=== PATIENT | female | born 1985 | race American Indian/Alaskan Native ===

== ENCOUNTER 2016-10-11 17:11 | Emergency (ER) | payer MEDICAID, OTHER | END 2016-10-11 20:20 | disposition left against medical advice (07) | LOC: DL.ED 17:11 | DX: Z53.21 Procedure and treatment not carried out due to patient leaving prior to being seen by health care provider (principal) ==

== ENCOUNTER 2017-01-15 23:58 | Emergency (ER) | payer MEDICAID, OTHER ==
[2017-01-16] MEDS ORDERED: Tetracaine HCl/PF 0.5% 4 ML Bottle EYEBOTH ONE (00:07)
[2017-01-16 00:23] VITALS: BP 119/71
== END 2017-01-16 00:50 | disposition left against medical advice (07) ==
LOC: DL.ED 23:58
DX: H57.13 Ocular pain, bilateral (principal)
CPT/HCPCS: A9270-GY

== ENCOUNTER 2017-06-10 11:28 | Inpatient (IN) | payer MEDICAID, OTHER ==
[2017-06-10] MEDS ORDERED: Lactated Ringers 500 ML IV ONE (12:00)
[2017-06-10] MEDS ORDERED: Citric Acid/Sodium Citrate Solution 30 ML Cup PO ONE (12:43)
[2017-06-10] MEDS ORDERED: ceFAZolin 2 GM in Premix Bag 1 BAG IV ONE (12:43)
[2017-06-10] MEDS ORDERED: Sodium Chloride 0.9% 10 ML Syringe FLUSH PRN (12:43)
[2017-06-10] MEDS ORDERED: Oxytocin/Normal Saline 60 UNIT/1,000 ML BAG ONE (12:56)
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
[2017-06-10] MEDS ORDERED: Oxytocin/Normal Saline 30 UNIT/500 ML BAG IV SCH (14:30)
[2017-06-10] MEDS ORDERED: Measles, Mumps & Rubella Vaccine 0.5 ML SDV SUBCUT ONE (14:51)
[2017-06-10] MEDS ORDERED: Oxytocin/Normal Saline 30 UNIT/500 ML BAG IV ONE (15:33)
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
[2017-06-10] MEDS ORDERED: Carboprost Tromethamine 250 MCG/1 ML Amp IM ONE (17:31)
[2017-06-10] MEDS ORDERED: Naloxone 2 MG/2 ML Syringe IVPUSH PRN (17:31)
[2017-06-10] MEDS ORDERED: Acetaminophen 325 MG Tab PO PRN (17:31)
[2017-06-10] MEDS ORDERED: ePHEDrine 50 MG/ML SDV IVPUSH PRN (17:31)
[2017-06-10] MEDS ORDERED: Ondansetron 4 MG/2 ML SDV IV PRN (17:31)
[2017-06-10] MEDS ORDERED: Methylergonovine 0.2 MG/1 ML Amp IM PRN (17:31)
[2017-06-10] MEDS ORDERED: Misoprostol 400 MCG (4 X 100 MCG TAB) RECTAL PRN (17:31)
[2017-06-10] MEDS ORDERED: diphenhydrAMINE 50 MG/ML SDV IVPUSH PRN (17:31)
[2017-06-10] MEDS ORDERED: Acetaminophen/oxyCODONE 325-5 MG Tab PO PRN (17:31)
[2017-06-10] MEDS: Acetaminophen/oxyCODONE 325-5 MG Tab PO PRN ×2 (17:50→22:02)
[2017-06-10] MEDS: Simethicone 80 MG Tab.Chew PO PRN (17:51)
[2017-06-10] MEDS: Lactated Ringers 1,000 ML IV SCH ×2 (17:53→23:06)
[2017-06-10] MEDS: Ketorolac 30 MG/ML SDV IVPUSH SCH (21:15)
[2017-06-10] MEDS: ceFAZolin 1 GM in Premix Bag 1 BAG IV SCH ×2 (21:16→22:34)
[2017-06-10] MEDS: Docusate Sodium 100 MG Cap PO PRN (21:18)
[2017-06-11] MEDS: Ketorolac 30 MG/ML SDV IVPUSH SCH ×2 (03:03→09:50)
[2017-06-11] MEDS: ceFAZolin 1 GM in Premix Bag 1 BAG IV SCH (06:11)
[2017-06-11] MEDS: Acetaminophen/oxyCODONE 325-5 MG Tab PO PRN ×5 (06:12→22:15)
[2017-06-11] MEDS: Lactated Ringers 1,000 ML IV SCH (07:50)
[2017-06-11] MEDS: Docusate Sodium 100 MG Cap PO PRN ×2 (09:49→22:15)
[2017-06-11] MEDS: Simethicone 80 MG Tab.Chew PO PRN ×3 (09:49→18:25)
--- NOTE | 2017-06-11 11:20 | PN ---
DATE: 06/11/2017 SUBJECTIVE: Postoperative day #1, doing well. She has been up to ambulate a few times and is voiding without difficulty. I think she might be passing some flatus, but is uncertain. Complaining of a little bit of a sharp sensation over toward the left side of her incision, but notes that this did not start until after she was given her MMR vaccine. Otherwise postoperative pain is well controlled. Denies any excessive bleeding. She has had no chest pain or shortness of breath. No symptoms of preeclampsia. Overall reports that is not going as well as she had hoped and the baby only latches very short-term and patient is willing to work with the nurses on this and has done some formula supplementation. No other new concerns today. OBJECTIVE: Vital Signs: Temperature is 98.0, pulse is 85, blood pressure 104/52, respiratory rate of 16, and O2 saturations 95% on room air. Heart: Regular without murmur. Lungs: Clear to auscultation with good chest expansion. Abdomen: Soft and nontender. Fundus is firm and below the umbilicus. Positive bowel sounds in all 4 quadrants. Dressing is intact. There is no strike through from the incision site itself, but there is a little bit of strike through from where the abscess was drained. Extremities: MANJU hoses are on. No warmth to touch. No edema or tenderness noted. LABORATORY DATA: Hemoglobin is down to 9.9 from a previous 12.5, platelets are down to 143 from 159. ASSESSMENT: Postoperative day #1. 1. Status post repeat section #3 at 36 weeks' gestation. 2. Rubella nonimmune status post MMR vaccination booster given. 3. Superficial abscesses of the mons pubis. 4. mother. 5. Other diagnoses per her admission H and P, most of which were considered resolved at this time. PLAN: Continue normal postoperative and cares and anticipate discharge home on postoperative day #3. Continue to work with lending consultant regarding the breast-feeding issues and the patient's questions were answered. [facility] /[id number]
[2017-06-11] MEDS ORDERED: ceFAZolin 1 GM in Premix Bag 1 BAG IV SCH (14:00)
[2017-06-11] MEDS: Ibuprofen 800 MG Tab PO PRN (18:24)
[2017-06-12] MEDS: Simethicone 80 MG Tab.Chew PO PRN ×3 (01:12→13:25)
[2017-06-12] MEDS: Ibuprofen 800 MG Tab PO PRN ×3 (01:12→17:28)
[2017-06-12] MEDS: Acetaminophen/oxyCODONE 325-5 MG Tab PO PRN ×5 (04:09→21:28)
--- NOTE | 2017-06-12 07:22 | OR ---
DATE: 06/10/2017 ADDENDUM: ADDITIONAL PREOPERATIVE DIAGNOSIS: Superficial skin abscesses on the mons pubis X2. POSTOPERATIVE DIAGNOSIS: Status post incision and drainage of the larger skin abscess. PROCEDURE: A simple incision and drainage of a larger skin abscess on the right side of the mons pubis with a cruciate incision. A sample of the drainage was cultured, and additional pus was expressed. This was all done under clean technique in the area that had already been prepped with ChloraPrep, and a sterile simple dressing was applied after that to promote drainage. FINDINGS: Two superficial skin abscesses were present on the mons pubis. First one is less than 1 cm in size and off to the left. The larger one on the right was approximately 2.5 cm of erythema, 0.5 cm of fluctuant induration, and purulent fluid expressed after it was opened. [facility] /[id number]
[2017-06-12] MEDS: Docusate Sodium 100 MG Cap PO PRN (08:59)
--- NOTE | 2017-06-12 11:04 | PN ---
DATE: 06/12/2017 SUBJECTIVE: Postoperative day #2. Doing well, ambulating, tolerating regular diet, passing flatus, has not yet had a bowel movement, voiding without difficulties, bleeding has been minimal, and then using SCDs at times for the leg massage. She has been exclusively pumping at this time and not getting much in the output for breast milk, and plans on going home tomorrow. OBJECTIVE: Vital Signs: Temperature 97.4, pulse 92, blood pressure 117/72, respiratory rate of 16, O2 saturations 98% on room air. Heart: Regular without any obvious murmur. Lungs: Clear to auscultation bilaterally. Abdomen: Soft without masses. Bowel sounds are positive. Incision is clean, dry, and intact. Extremities: MANJU hose are on. No warmth to touch, tenderness, or swelling appreciated. ASSESSMENT: 1. Postoperative day #2 status post repeat . 2. Delivered at 36 weeks' gestation. Now 3, para 1-2-0-2. PLAN: Continue routine postoperative cares. Anticipating discharge home tomorrow as long as all continues to go well. Discussed with the patient possibly starting some Reglan for helping with breast milk production, continuing with pumping, and Formula supplementation. Her questions have been answered and she is in agreement with the plan. [facility] /[id number] MARIA ELENA
[2017-06-12] MEDS: Prenatal Multivitamin with Calcium/Folic Acid/Iron Tab PO SCH (11:49)
[2017-06-12] MEDS: Metoclopramide 10 MG Tab PO SCH ×2 (11:49→17:03)
[2017-06-12] MEDS ORDERED: Ketorolac 30 MG/ML SDV IVPUSH ONE (15:34)
[2017-06-12] MEDS ORDERED: Lactated Ringers 1,000 ML IV ONE (15:34)
[2017-06-12] MEDS ORDERED: Morphine PF 1 MG/ML Amp ONE (15:34)
[2017-06-13] MEDS: Ibuprofen 800 MG Tab PO PRN (08:05)
[2017-06-13] MEDS: Simethicone 80 MG Tab.Chew PO PRN (08:05)
[2017-06-13] MEDS: Acetaminophen/oxyCODONE 325-5 MG Tab PO PRN ×2 (08:05→12:13)
[2017-06-13] MEDS: Prenatal Multivitamin with Calcium/Folic Acid/Iron Tab PO SCH (08:05)
[2017-06-13] MEDS: Docusate Sodium 100 MG Cap PO PRN (08:06)
[2017-06-13] MEDS: Metoclopramide 10 MG Tab PO SCH ×2 (08:09→12:13)
[2017-06-13 08:56] VITALS: BP 119/70
--- NOTE | 2017-06-13 10:37 | PCM.PRNOTE ---
- Free Text/Narrative Note: Dr. Parkinson spoke with me this morning regarding Karin. Dr Parkinson stated Karin is having headaches and would like me to rule out a PDPH. Upon entering the room, pt is sitting up with baby sleeping in bed to her left. Pt appears to be in no obvious distress. Pt is complaining of headaches and dizziness when standing/ walking. Headaches began immediately after delivery and have continued to this point. Oral analgesics do help with the pain but dizziness is more concerning to pt then the headahces. Headaches are located frontal and patient is also complaining that her hearing is "muffled". Temp is 99.7 but room was warm and pt was covered head-to-toe with blankets. Complaining of generalized malaise. Appetite is adequate and elimination is normal. Spoke with Karin regarding PDPH and we both agree that she does not have the typical symptoms associated with PDPH. Pt confirms she feels congested but denies and post nasal drainage or a cough. Karin was instructed to sit before standing and no sudden position changes while walking. Encouraged to maintain hydration and to notify anesthesia if her headaches worsen or if she believes she may a PDPH. Discussed these findings briefly with Dr Parkinson. Dr Parkinson says she will address the headaches and dizziness.
[2017-06-13] MEDS ORDERED: Propofol 200 MG/20 ML SDV IV ONE (12:44)
--- NOTE | 2017-06-15 20:23 | DISCH ---
ADMISSION DIAGNOSES: 1. A 36 and 0/7 weeks' intrauterine by last menstrual period. 2. Active labor. 3. History of section x2. 4. 3, para 1-1-0-1. 5. Group B Streptococcus positive. 6. Rubella nonimmune. 7. Blood type O positive. 8. Gastroesophageal reflux disease. 9. History of labor and delivery. 10.History of low-lying placenta, resolved. 11.Abscess on the mons pubis. DISCHARGE DIAGNOSES: 1. A 36 and 0/7 weeks' intrauterine by last menstrual period. 2. Active labor. 3. History of section x2. 4. 3, para 1-1-0-2. 5. Group B Streptococcus positive. 6. Rubella nonimmune. 7. Blood type O positive. 8. Gastroesophageal reflux disease. 9. History of labor and delivery. 10.History of low-lying placenta, resolved. 11.Abscess on the mons pubis. 12.Thrombocytopenia. 13.Status post repeat low transverse section. 14.Status post incision and drainage of abscess that grew out Staphylococcus lugdunensis. 15.Anemia of blood loss. BRIEF HISTORY: A 32-year-old female, admitted to the hospital with spontaneous onset of labor and 7 cm of dilatation. Repeat section called for immediately and performed without complications or difficulty. See admission history and physical and operative report for details. HOSPITAL COURSE: Good. After her , the patient has done well in general postoperatively. On day of discharge, she reported a headache, had been there since the day of discharge, Anesthesia assessed and felt the spinal headache was not the cause and that sinusitis was the more likely etiology. She had no other significant symptoms of head cold or sinusitis and did not have fevers. No antibiotics were prescribed. After surgery, she has been ambulating, tolerating regular diet, passing flatus, not had a bowel movement, was voiding without difficulties. Abdominal pain and soreness were controlled. Otherwise, she was having some difficulties with , and needing to pump and feed her baby expressed breast milk and bottle feed, but is determined to keep working on this once they go home. She was denying any symptoms of severe anemia. Did not have any spontaneous bruising or bleeding. The I and D site had improved in appearance over the course of her hospital stay, and she had no complications from her wound. DISCHARGE CONDITION: Good. Vital Signs: Temperature is 98.8, pulse is 87, blood pressure 119/70, respiratory rate of 18, and O2 saturations 98% on room air. HEENT: Head, normocephalic and atraumatic. Ear canals are clear. Nose, turbinates are mildly boggy and inflamed, but no significant drainage present. Some sinus tenderness is present. Heart: Regular without murmur. Lungs: Clear to auscultation bilaterally with good chest expansion. Abdomen: Soft. Bowel sounds are normal. Fundus is firm and below the umbilicus. Incision site is clean, dry, and intact with dilan in place. Incision and drainage site also appears to be healing well. Extremities: Trace edema. No erythema or tenderness noted. Admission hemoglobin 12.5, discharge of 9.9. Admission platelets 159, discharge 143. DISPOSITION: Home with family. MEDICATIONS: 1. Percocet 5/325 one to two tablets every 4 to 6 hours as needed for pain. 2. Ibuprofen 600 mg every 6 hours as needed for pain. 3. Iron 325 mg twice daily. 4. Colace 100 mg twice daily as needed for pain. 5. vitamin, continue 1 daily. FOLLOWUP: She will be seen in the office in the next few days with her baby for postoperative check and staple removal. INSTRUCTIONS: Routine postoperative care instructions were provided. Specific attention was paid to signs and symptoms of infection that would warrant repeat evaluation or treatment. As for her sinus congestion symptoms, it was recommended that she use typical lota-bae-tcvplnl remedies, sinus rinse kit, Sudafed as needed, Tylenol or ibuprofen for pain, humidification, and another simple modalities for treatment. All chance that this actually is a spinal headache also discussed, adequate rest and caffeine use to help with symptoms as well. The patient's questions were answered, and she was discharged home in good condition. [facility] /[id number] MARIA ELENA
== END 2017-06-13 12:45 | disposition home or self-care (01) | DRG 765 ==
LOC: DL.OBCHECK 11:28 → DL.MS 12:43 → UNDOADMOB 12:45 → DL.MS 13:20 → OBSVTOIN 13:39
PROVIDERS: ADMIT Family Medicine; ATTEND Family Medicine
PROC: 10D00Z1 Extraction of Products of Conception, Low, Open Approach (ICD-10-PCS; principal; 2017-06-10)
PROC: 0W9N0ZZ Drainage of Female Perineum, Open Approach (ICD-10-PCS; 2017-06-10)
DX: O99.52 Diseases of the respiratory system complicating childbirth (principal); L02.215 Cutaneous abscess of perineum; O60.13X0 Preterm labor second trimester with preterm delivery third trimester, not applicable or unspecified; Z3A.36 36 weeks gestation of pregnancy; Z37.0 Single live birth; O34.211 Maternal care for low transverse scar from previous cesarean delivery; N85.8 Other specified noninflammatory disorders of uterus; O99.824 Streptococcus B carrier state complicating childbirth; O75.89 Other specified complications of labor and delivery; K21.9 Gastro-esophageal reflux disease without esophagitis; Z87.891 Personal history of nicotine dependence; Z79.899 Other long term (current) drug therapy; Z88.1 Allergy status to other antibiotic agents; Z91.040 Latex allergy status
CPT/HCPCS: 01961; 36415; 85025; 85027; 86850; 86900; 86901; 87070; 87077; 87186; 90471; 90707; 94010; A9270-GY; J0690; J1200; J1885; J2274; J2590; J2704; J7120

== ENCOUNTER 2017-07-18 00:26 | Emergency (ER) | payer MEDICAID, OTHER ==
[2017-07-18 01:06] VITALS: BP 118/74
--- NOTE | 2017-07-18 01:16 | EDM.PDOC ---
ED HPI GENERAL MEDICAL PROBLEM - General Chief Complaint: Head Injury Stated Complaint: BAD HEAD ACHE [id number] Time Seen by Provider: 07/18/17 01:10 Source of Information: Reports: Patient History Limitations: Reports: No Limitations - History of Present Illness INITIAL COMMENTS - FREE TEXT/NARRATIVE: This 32 yo female patient reports to the ED with a headache. The patient reports she slipped on the ice at about 0700 yesterday morning (07/17/17) and has been experiencing an increased headache, intermittent dizziness and nausea since the incident. The patient reports she took Tylenol at about 2100 last night with no changes in symptoms. 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 Posterior Head Pain Score (Numeric/FACES): 7 - Related Data Allergies Allergy/AdvReac Type Severity Reaction Status Date / Time amoxicillin [Amoxicillin] Allergy Rash Verified 06/05/17 21:32 latex Allergy Blisters Verified 06/05/17 21:32 Home Meds: Home Meds Vit W-Ca,Fe,FA(<1 mg) [ Vitamins] 1 each PO DAILY 01/16/17 [ History] Acetaminophen/oxyCODONE [Percocet 325-5 MG] 2 tab PO Q4H PRN #30 tablet [Rx] Docusate Sodium [Colace] 100 mg PO Q12H PRN #60 cap 06/13/17 [Rx] Ferrous Sulfate 325 mg PO BIDMEALS #60 tablet 06/13/17 [Rx] Ibuprofen [IJD: Ibuprofen] 600 mg PO Q6H PRN #30 tablet 06/13/17 [Rx] Past Medical History HEENT History: Reports: Impaired Vision Other HEENT History: states has not worn her contact lenses for past couple days Cardiovascular History: Reports: None Respiratory History: Reports: Asthma Gastrointestinal History: Reports: GERD Genitourinary History: Reports: None 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: , Other (See Below) Other OB/BYN History: currently is LMP 10/02/16; EDC 07/10/17 Musculoskeletal History: Reports: None Neurological History: Reports: None Psychiatric History: Reports: None Endocrine/Metabolic History: Reports: None Hematologic History: Reports: Blood Transfusion(s) Immunologic History: Reports: None Oncologic (Cancer) History: Reports: None Dermatologic History: Reports: None - Past Surgical History Head Surgeries/Procedures: Reports: None Cardiovascular Surgical History: Reports: None Respiratory Surgical History: Reports: None GI Surgical History: Reports: Appendectomy Female Surgical History: Reports: Section Endocrine Surgical History: Reports: None Neurological Surgical History: Reports: None Musculoskeletal Surgical History: Reports: None Oncologic Surgical History: Reports: None Dermatological Surgical History: Reports: None Social & Family History - Family History Family Medical History: Noncontributory - Tobacco Use Smoking Status *Q: Former Smoker Years of Tobacco use: 7 Packs/Tins Daily: 0.5 Used Tobacco, but Quit: No Month Tobacco Last Used: 10/2016 Second Hand Smoke Exposure: No - Caffeine Use Caffeine Use: Reports: None - Recreational Drug Use Recreational Drug Use: No Drug Use in Last 12 Months: No ED ROS GENERAL - Review of Systems Review Of Systems: ROS reveals no pertinent complaints other than HPI. ED EXAM, HEAD INJURY - Physical Exam Exam: See Below Exam Limited By: No Limitations General Appearance: Alert, WD/WN, Moderate Distress Head: Scalp Tenderness (posterior) Nexus Criteria: No: Posterior, Midline Cervical Tenderness, Evidence of Intoxication, Altered Level of Consciousness, Focal Neurological Deficit, Painful Distraction Injuries Eyes: Bilateral Eye: EOMI, Normal Inspection, PERRL Ears: Normal External Exam, Normal Canal, Hearing Grossly Normal, Normal TMs Nose: Normal Inspection, Normal Mucousa, No Blood Throat/Mouth: Normal Inspection, Normal Lips, Normal Teeth, Normal Gums, Normal Oropharynx, Normal Voice, No Airway Compromise Neck: Non-Tender, Full Range of Motion, Normal Alignment, Normal Inspection Respiratory: No Respiratory Distress, Lungs Clear, Normal Breath Sounds, No Accessory Muscle Use, Chest Non-Tender Cardiovascular: Normal Peripheral Pulses, Regular Rate, Rhythm, No Edema, No Gallop, No JVD, No Murmur, No Rub GI/Abdominal Exam: Normal Bowel Sounds, Soft, Non-Tender, No Organomegaly, No Distention, No Abnormal Bruit, No Mass (Female) Exam: Deferred Rectal (Female) Exam: Deferred Back Exam: Full Range of Motion, Normal Inspection, NT Extremities: Normal Inspection, Normal Range of Motion, Non-Tender, No Pedal Edema, Normal Capillary Refill 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 As Tested, No Motor/Sensory Deficits, Alert, Normal Mood/Affect, Oriented x 3 Skin: Normal Color, Warm/Dry - [place] Coma Score Best Eye Response (Anel): (4) Open Spontaneously Best Verbal Response ([place]): (5) Oriented Best Motor Response ([place]): (6) Obeys Commands Anel Total: 15 Course - Vital Signs Last Recorded V/S: Last Vital Signs Temp 36.8 C 07/18/17 00:55 Pulse 76 07/18/17 00:55 Resp 16 07/18/17 00:55 BP 118/74 07/18/17 00:55 Pulse Ox 99 07/18/17 00:55 - Orders/Labs/Meds Orders: Active Orders 24 hr Category Date Time Status Head wo Cont [CT] Urgent Exams 07/18/17 01:11 Taken Meds: Medications Discontinued Medications Generic Name Dose Route Start Last Admin Trade Name Freq PRN Reason Stop Dose Admin Ketorolac Tromethamine 60 mg 07/18/17 01:48 Toradol IM 07/18/17 01:49 ONETIME ONE Departure - Departure Time of Disposition: 01:55 Disposition: Home, Self-Care 01 Condition: Fair Clinical Impression: Concussion injury of brain - Discharge Information Instructions: Concussion, Adult, [id number] Forms: ED Department Discharge Care Plan Goals: The patient was advised of the examination and CT results during the visit. The patient was given an injection of Toradol while in the ED for her headache. The patient was advised of a cyst found during the CT of her head. The patient was encouraged to follow-up with her primary care facility for continued evaluation and possible additional treatment for the cyst. The patient was also encouraged to rest and relax over the next 24-48 hours. If the patient has any additional symptoms or concerns, the patient should visit her primary care facility or return to the emergency department. - My Orders Last 24 Hours: My Active Orders 07/18/17 01:11 Head wo Cont [CT] Urgent - Assessment/Plan Last 24 Hours: My Active Orders 07/18/17 01:11 Head wo Cont [CT] Urgent
[2017-07-18] MEDS ORDERED: Ketorolac 30 MG/ML SDV IM ONE (01:48)
== END 2017-07-18 02:05 | disposition home or self-care (01) ==
LOC: DL.ED 00:26
DX: O9A.23 Injury, poisoning and certain other consequences of external causes complicating the puerperium (principal); S06.0X0A Concussion without loss of consciousness, initial encounter; Z87.891 Personal history of nicotine dependence; Z88.1 Allergy status to other antibiotic agents; Z91.040 Latex allergy status
CPT/HCPCS: 70450; 96372; 99283; J1885

== ENCOUNTER 2017-10-29 07:37 | Emergency (ER) | payer MEDICAID, OTHER ==
[2017-10-29 07:50] VITALS: BP 114/78
--- NOTE | 2017-10-29 08:32 | EDM.PDOC ---
ED HPI GENERAL MEDICAL PROBLEM - General Chief Complaint: Abdominal Pain Stated Complaint: side pain [id number] Time Seen by Provider: 10/29/17 08:15 Source of Information: Reports: Patient History Limitations: Reports: No Limitations - History of Present Illness INITIAL COMMENTS - FREE TEXT/NARRATIVE: This 32 yo female patient reports to the ED with right side and flank pain. The patient reports her symptoms started at about 0430 this morning and has continued since that time. The patient reports she took 2 Tylenol at about 0615 , but has had no symptom relief. The patient reports she did have a and has been having some complications with her surgical wound, but reports the wound seems to be healing now. 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 OB/BYN History: currently is LMP 10/02/16; EDC 07/10/17 Musculoskeletal History: Reports: None Neurological History: Reports: None Psychiatric History: Reports: None Endocrine/Metabolic History: Reports: None Hematologic History: Reports: Blood Transfusion(s) Immunologic History: Reports: None Oncologic (Cancer) History: Reports: None Dermatologic History: Reports: None - Past Surgical History Head Surgeries/Procedures: Reports: None Cardiovascular Surgical History: Reports: None Respiratory Surgical History: Reports: None GI Surgical History: Reports: Appendectomy Female Surgical History: Reports: Section Endocrine Surgical History: Reports: None Neurological Surgical History: Reports: None Musculoskeletal Surgical History: Reports: None Oncologic Surgical History: Reports: None Dermatological Surgical History: Reports: None Social & Family History - Family History Family Medical History: Noncontributory - Tobacco Use Smoking Status *Q: Never Smoker Years of Tobacco use: 7 Packs/Tins Daily: 0.5 Used Tobacco, but Quit: No Month/Year Tobacco Last Used: 10/2016 Second Hand Smoke Exposure: No - Caffeine Use Caffeine Use: Reports: Soda - Recreational Drug Use Recreational Drug Use: No Drug Use in Last 12 Months: No ED ROS GENERAL - Review of Systems Review Of Systems: ROS reveals no pertinent complaints other than HPI. ED EXAM, RENAL/ - Physical Exam Exam: See Below Exam Limited By: No Limitations General Appearance: Alert, WD/WN, Moderate Distress Eye Exam: Bilateral Eye: EOMI, Normal Inspection, PERRL Ears: Normal External Exam, Normal Canal, Hearing Grossly Normal, Normal TMs Nose: Normal Inspection, Normal Mucosa, No Blood Throat/Mouth: Normal Inspection, Normal Lips, Normal Teeth, Normal Gums, Normal Oropharynx, Normal Voice, No Airway Compromise Head: Atraumatic, Normocephalic Neck: Normal Inspection, Supple, Non-Tender, Full Range of Motion Respiratory/Chest: No Respiratory Distress, Lungs Clear, Normal Breath Sounds, No Accessory Muscle Use, Chest Non-Tender Cardiovascular: Normal Peripheral Pulses, Regular Rate, Rhythm, No Edema, No Gallop, No JVD, No Murmur, No Rub GI/Abdominal: Normal Bowel Sounds, Soft, No Organomegaly, No Distention, No Abnormal Bruit, Tender (right sied) (Female) Exam: Deferred Rectal (Female) Exam: Deferred Back Exam: CVA Tenderness (R) Extremities: Normal Inspection, Normal Range of Motion, Non-Tender, Normal Capillary Refill, No Pedal Edema Neurological: Alert, Oriented, CN II-XII Intact, Normal Cognition, Normal Gait, Normal Reflexes, No Motor/Sensory Deficits Psychiatric: Normal Affect, Normal Mood Skin Exam: Warm, Dry, Intact, Normal Color, No Rash Lymphatic: No Adenopathy Course - Vital Signs Last Recorded V/S: Last Vital Signs Temp 36.9 C 10/29/17 07:48 Pulse 87 10/29/17 07:48 Resp 16 10/29/17 07:48 BP 114/78 10/29/17 07:48 Pulse Ox 99 10/29/17 07:48 - Orders/Labs/Meds Orders: Active Orders 24 hr Category Date Time Status CULTURE BLOOD [BC] Stat Lab 10/29/17 08:19 Received Labs: Laboratory Tests 10/29/17 10/29/17 10/29/17 Range/Units 07:44 07:44 07:44 WBC (5.0-10.0) 10^3/uL RBC (4.2-5.4) 10^6/uL Hgb (12.0-16.0) g/dL Hct (37.0-47.0) % MCV (80-100) fL MCH (27.0-34.0) pg MCHC (33.0-35.0) g/dL Plt Count (150-450) 10^3/uL Neut % (Auto) (42.2-75.2) % Lymph % (Auto) (20.5-50.1) % [place] % (Auto) (2-8) % Eos % (Auto) (1.0-3.0) % Baso % (Auto) (0.0-1.0) % Sodium (135-145) mmol/L Potassium (3.6-5.0) mmol/L Chloride (101-111) mmol/L Carbon Dioxide (21.0-31.0) mmol/L Anion Gap BUN (7-18) mg/dL Creatinine (0.6-1.3) mg/dL Est Cr Clr Drug Dosing mL/min Estimated GFR (MDRD) BUN/Creatinine Ratio Glucose (74-105) mg/dL Lactic Acid (0.5-2.2) mmol/L Calcium (8.4-10.2) mg/dl Total Bilirubin (0.2-1.0) mg/dL AST (10-42) IU/L ALT (10-60) IU/L Alkaline Phosphatase (42-121) IU/L Total Protein (6.7-8.2) g/dl Albumin (3.2-5.5) g/dl Globulin Albumin/Globulin Ratio Amylase (28-100) U/L Lipase (22-51) U/L Urine Color Yellow (YELLOW) Urine Appearance Slightly cloudy (CLEAR) Urine pH 5.5 (5.0-9.0) Ur Specific [place] >= 1.030 (1.005-1.030) Urine Protein Trace H (NEGATIVE) Urine Glucose (UA) Negative (NEGATIVE) Urine Ketones Negative (NEGATIVE) Urine Occult Blood Negative (NEGATIVE) Urine Nitrite Negative (NEGATIVE) Urine Bilirubin Negative (NEGATIVE) Urine Urobilinogen 0.2 (0.2-1.0) mg/dL Ur Leukocyte Esterase Negative (NEGATIVE) Urine RBC 0-5 /HPF Urine WBC 0-5 (0-5/HPF) /HPF Ur Epithelial Cells Many H /HPF Urine Bacteria Moderate H (0-FEW/HPF) /HPF Urine Mucus Many H /LPF Urine HCG, Qual Negative Urine Opiates Screen Negative (NEGATIVE) Ur Oxycodone Screen Negative (NEGATIVE) Urine Methadone Screen Negative (NEGATIVE) Ur Barbiturates Screen Negative (NEGATIVE) U Tricyclic Antidepress Negative (NEGATIVE) Ur Phencyclidine Scrn Negative (NEGATIVE) Ur Amphetamine Screen Negative (NEGATIVE) U Methamphetamines Scrn Negative (NEGATIVE) Urine MDMA Screen Negative (NEGATIVE) U Benzodiazepines Scrn Negative (NEGATIVE) Urine Cocaine Screen Negative (NEGATIVE) U Marijuana (THC) Screen Negative (NEGATIVE) 10/29/17 10/29/17 10/29/17 Range/Units 08:19 08:19 08:19 WBC 6.3 (5.0-10.0) 10^3/uL RBC 4.86 (4.2-5.4) 10^6/uL Hgb 13.9 D (12.0-16.0) g/dL Hct 41.4 (37.0-47.0) % MCV 85.2 (80-100) fL MCH 28.6 (27.0-34.0) pg MCHC 33.6 (33.0-35.0) g/dL Plt Count 230 D (150-450) 10^3/uL Neut % (Auto) 62.4 (42.2-75.2) % Lymph % (Auto) 20.7 (20.5-50.1) % [place] % (Auto) 9.1 H (2-8) % Eos % (Auto) 7.6 H (1.0-3.0) % Baso % (Auto) 0.2 (0.0-1.0) % Sodium (135-145) mmol/L Potassium (3.6-5.0) mmol/L Chloride (101-111) mmol/L Carbon Dioxide (21.0-31.0) mmol/L Anion Gap BUN (7-18) mg/dL Creatinine (0.6-1.3) mg/dL Est Cr Clr Drug Dosing mL/min Estimated GFR (MDRD) BUN/Creatinine Ratio Glucose (74-105) mg/dL Lactic Acid 1.1 (0.5-2.2) mmol/L Calcium (8.4-10.2) mg/dl Total Bilirubin (0.2-1.0) mg/dL AST (10-42) IU/L ALT (10-60) IU/L Alkaline Phosphatase (42-121) IU/L Total Protein (6.7-8.2) g/dl Albumin (3.2-5.5) g/dl Globulin Albumin/Globulin Ratio Amylase 47 (28-100) U/L Lipase 22 (22-51) U/L Urine Color (YELLOW) Urine Appearance (CLEAR) Urine pH (5.0-9.0) Ur Specific [place] (1.005-1.030) Urine Protein (NEGATIVE) Urine Glucose (UA) (NEGATIVE) Urine Ketones (NEGATIVE) Urine Occult Blood (NEGATIVE) Urine Nitrite (NEGATIVE) Urine Bilirubin (NEGATIVE) Urine Urobilinogen (0.2-1.0) mg/dL Ur Leukocyte Esterase (NEGATIVE) Urine RBC /HPF Urine WBC (0-5/HPF) /HPF Ur Epithelial Cells /HPF Urine Bacteria (0-FEW/HPF) /HPF Urine Mucus /LPF Urine HCG, Qual Urine Opiates Screen (NEGATIVE) Ur Oxycodone Screen (NEGATIVE) Urine Methadone Screen (NEGATIVE) Ur Barbiturates Screen (NEGATIVE) U Tricyclic Antidepress (NEGATIVE) Ur Phencyclidine Scrn (NEGATIVE) Ur Amphetamine Screen (NEGATIVE) U Methamphetamines Scrn (NEGATIVE) Urine MDMA Screen (NEGATIVE) U Benzodiazepines Scrn (NEGATIVE) Urine Cocaine Screen (NEGATIVE) U Marijuana (THC) Screen (NEGATIVE) 10/29/17 Range/Units 08:19 WBC (5.0-10.0) 10^3/uL RBC (4.2-5.4) 10^6/uL Hgb (12.0-16.0) g/dL Hct (37.0-47.0) % MCV (80-100) fL MCH (27.0-34.0) pg MCHC (33.0-35.0) g/dL Plt Count (150-450) 10^3/uL Neut % (Auto) (42.2-75.2) % Lymph % (Auto) (20.5-50.1) % [place] % (Auto) (2-8) % Eos % (Auto) (1.0-3.0) % Baso % (Auto) (0.0-1.0) % Sodium 135 (135-145) mmol/L Potassium 3.9 (3.6-5.0) mmol/L Chloride 104 (101-111) mmol/L Carbon Dioxide 23.0 (21.0-31.0) mmol/L Anion Gap 11.9 BUN 12 (7-18) mg/dL Creatinine 0.4 L (0.6-1.3) mg/dL Est Cr Clr Drug Dosing 185.05 mL/min Estimated GFR (MDRD) > 60 BUN/Creatinine Ratio 30.00 Glucose 100 (74-105) mg/dL Lactic Acid (0.5-2.2) mmol/L Calcium 9.1 (8.4-10.2) mg/dl Total Bilirubin 0.5 (0.2-1.0) mg/dL AST 45 H (10-42) IU/L ALT 68 H (10-60) IU/L Alkaline Phosphatase 60 (42-121) IU/L Total Protein 7.2 (6.7-8.2) g/dl Albumin 3.9 (3.2-5.5) g/dl Globulin 3.3 Albumin/Globulin Ratio 1.18 Amylase (28-100) U/L Lipase (22-51) U/L Urine Color (YELLOW) Urine Appearance (CLEAR) Urine pH (5.0-9.0) Ur Specific [place] (1.005-1.030) Urine Protein (NEGATIVE) Urine Glucose (UA) (NEGATIVE) Urine Ketones (NEGATIVE) Urine Occult Blood (NEGATIVE) Urine Nitrite (NEGATIVE) Urine Bilirubin (NEGATIVE) Urine Urobilinogen (0.2-1.0) mg/dL Ur Leukocyte Esterase (NEGATIVE) Urine RBC /HPF Urine WBC (0-5/HPF) /HPF Ur Epithelial Cells /HPF Urine Bacteria (0-FEW/HPF) /HPF Urine Mucus /LPF Urine HCG, Qual Urine Opiates Screen (NEGATIVE) Ur Oxycodone Screen (NEGATIVE) Urine Methadone Screen (NEGATIVE) Ur Barbiturates Screen (NEGATIVE) U Tricyclic Antidepress (NEGATIVE) Ur Phencyclidine Scrn (NEGATIVE) Ur Amphetamine Screen (NEGATIVE) U Methamphetamines Scrn (NEGATIVE) Urine MDMA Screen (NEGATIVE) U Benzodiazepines Scrn (NEGATIVE) Urine Cocaine Screen (NEGATIVE) U Marijuana (THC) Screen (NEGATIVE) Meds: Medications Discontinued Medications Generic Name Dose Route Start Last Admin Trade Name Apolinar PRN Reason Stop Dose Admin Iopamidol 75 ml 10/29/17 09:03 10/29/17 09:48 Isovue-300 (61%) IVPUSH 10/29/17 09:04 75 ml ONETIME ONE Administration Ketorolac Tromethamine 60 mg 10/29/17 10:32 Toradol IM 10/29/17 10:33 ONETIME ONE Departure - Departure Time of Disposition: 10:34 Disposition: Home, Self-Care 01 Condition: Fair Clinical Impression: Low back strain Qualifiers: Encounter type: initial encounter Qualified Code(s): S39.012A - Strain of muscle, fascia and tendon of lower back, initial encounter - Discharge Information Instructions: Muscle Strain, [id number] Forms: ED Department Discharge Care Plan Goals: The patient was advised of the examination, lab and CT results during the visit. The patient was given an injection of Toradol while in the ED. The patient was discharged with a script for Toradol (10 mg) #20 to take 1 by mouth every 6 hours and Flexeril (10 mg) #10 to take 1 by mouth at bedtime as needed. The patient should continue to be active. If the patient has any additional symptoms or concerns, the patient should visit her primary care facility or return to the emergency department. - My Orders Last 24 Hours: My Active Orders 10/29/17 08:19 CULTURE BLOOD [BC] Stat - Assessment/Plan Last 24 Hours: My Active Orders 10/29/17 08:19 CULTURE BLOOD [BC] Stat
[2017-10-29 08:56] LABS: ANION GAP 11.9; CHLORIDE,CL 104 mmol/L (101-111); SODIUM,NA 135 mmol/L (135-145)
[2017-10-29] MEDS ORDERED: Iopamidol 612 MG/ML 75 ML Bottle IVPUSH ONE (09:03)
[2017-10-29] MEDS ORDERED: Ketorolac 30 MG/ML SDV IM ONE (10:32)
== END 2017-10-29 11:09 | disposition home or self-care (01) ==
LOC: DL.ED 07:37
DX: S39.012A Strain of muscle, fascia and tendon of lower back, initial encounter (principal); Z98.890 Other specified postprocedural states; Z88.1 Allergy status to other antibiotic agents; Z91.040 Latex allergy status; X58.XXXA Exposure to other specified factors, initial encounter
CPT/HCPCS: 36415; 74177; 80053; 80305; 81001; 81025; 82150; 83605; 83690; 85025; 87040; 96372; 99284; J1885; Q9967

== ENCOUNTER 2018-08-13 10:15 | Emergency (ER) | payer MEDICAID ==
[2018-08-13 10:22] VITALS: BP 124/77
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
== END 2018-08-13 11:16 | disposition home or self-care (01) ==
LOC: DL.ED 10:15
DX: S62.663A Nondisplaced fracture of distal phalanx of left middle finger, initial encounter for closed fracture (principal); Z88.1 Allergy status to other antibiotic agents; Z91.040 Latex allergy status; W23.0XXA Caught, crushed, jammed, or pinched between moving objects, initial encounter
CPT/HCPCS: 73140-F2; 99283

== ENCOUNTER 2018-11-14 05:51 | Day surgery (SDC) | payer MEDICAID ==
[2018-11-14] MEDS ORDERED: fentaNYL 100 MCG/2 ML SDV IV ONE ×3 (05:52→06:58)
[2018-11-14] MEDS ORDERED: Midazolam 1 MG/ML 2 ML SDV IV ONE ×3 (05:52→07:00)
[2018-11-14] MEDS ORDERED: Midazolam 1 MG/ML 2 ML SDV ONE (06:01)
[2018-11-14] MEDS ORDERED: fentaNYL 100 MCG/2 ML SDV ONE (06:02)
[2018-11-14] MEDS ORDERED: Sodium Chloride 0.9% 10 ML Syringe FLUSH PRN (07:00)
[2018-11-14] MEDS ORDERED: Dextrose 5%-0.45% NaCl 1,000 ML IV SCH (08:00)
[2018-11-14 11:07] VITALS: BP 100/54
--- NOTE | 2018-11-14 11:35 | OR ---
DATE: 11/14/2018 PROCEDURE PERFORMED: Esophagogastroduodenoscopy and multiple pinch biopsies. INSTRUMENT USED: GIF-[id number] Olympus video panendoscope. PREMEDICATIONS: No oral or topical anesthesia used. Fentanyl 100 mcg intravenous, Versed 2 mg intravenous. The procedure was done under pulse oximetry, BP recording, and color television console monitor. INDICATION: The patient with longstanding heartburn and associated dyspepsia, unexplained and not responsive to medical measures, on PPI. Esophagogastroduodenoscopy is performed for detection of any active erosive lesions, Colmenares esophagus and/or malignancy also under consideration, H. pylori status to be determined, endoscopic hemostasis therapy if needed. DESCRIPTION OF PROCEDURE: The scope was passed with ease. Adequate visualization of the esophagus was made from proximal to distal areas. No upper esophageal lesions identified. No distal esophageal stricture. No uphill or downhill esophageal varices. No Marilynn-Bailey tear. Grade A erosive changes were noted by Maury criteria. No esophageal polyp or tumor mass was identified. Z-line was seen at around 39 cm distal to the oral verge, configuration consistent with grade 1 by ZAP classification. No proximal gastric varices noted. Gastric fundus examination by retroflexion showed no polypoid lesions. No gastric ulcer, malignant mass, or vascular ectasia identified. Duodenal bulb showed no ulcer. Visualized second part of the duodenum was unremarkable. Multiple pinch biopsies were taken from the gastric antrum and proximal body and sent for PyloriTek test for H. pylori, and if negative in an hour, tissue is to be sent for histopathology. No bleeding was noted from any of the visualized areas at the completion of examination. Photographs were taken of the duodenal bulb, gastric antrum, fundus, and distal esophagus. IMPRESSION: Grade A gastroesophageal reflux disease. The patient tolerated the procedure well. [facility] /[id number]
== END 2018-11-14 09:11 | disposition home or self-care (01) ==
LOC: DL.ENDO 05:51
PROVIDERS: ATTEND Internal Medicine Gastroenterology
DX: K29.50 Unspecified chronic gastritis without bleeding (principal); K21.0 Gastro-esophageal reflux disease with esophagitis; J45.909 Unspecified asthma, uncomplicated; E66.09 Other obesity due to excess calories; Z68.32 Body mass index [BMI] 32.0-32.9, adult; Z87.891 Personal history of nicotine dependence; Z79.899 Other long term (current) drug therapy
CPT/HCPCS: 43239; 87077; J2250; J3010; J7042

== ENCOUNTER 2019-08-19 18:50 | Emergency (ER) | payer MEDICAID ==
[2019-08-19 21:36] LABS: ANION GAP 12.2; CHLORIDE,CL 103 mmol/L (101-111); SODIUM,NA 136 mmol/L (135-145)
[2019-08-19] MEDS ORDERED: Iopamidol 612 MG/ML 100 ML Bottle IVPUSH ONE (21:52)
--- NOTE | 2019-08-19 21:53 | EDM.PDOC ---
ED HPI GENERAL MEDICAL PROBLEM - General Chief Complaint: Abdominal Pain Stated Complaint: SIDE PAIN/DIZZY Time Seen by Provider: 08/19/19 20:15 Source of Information: Reports: Patient, RN, RN Notes Reviewed History Limitations: Reports: No Limitations - History of Present Illness INITIAL COMMENTS - FREE TEXT/NARRATIVE: patient presents to ER with complaint of right mid to lower quadrant pain that began today, patient states it is a sharp pain that comes and goes. Patient states her last bowel movement was at 4:00 this afternoon, and was hard. Patient states she feels she has been more constipated lately. Patient denies fever, chills, nausea, vomiting, diarrhea. Patient states she still has her gallbladder, but her appendix has been removed. She denies any symptoms frequency, urgency, burning with urination. Onset: Today Duration: Intermittent Location: Reports: Abdomen Quality: Reports: Sharp, Stabbing Severity: Moderate Improves with: Reports: None Worsens with: Reports: None Associated Symptoms: Reports: No Other Symptoms Right Abdomen Pain Score (Numeric/FACES): 5 - Related Data Allergies Allergy/AdvReac Type Severity Reaction Status Date / Time amoxicillin [Amoxicillin] Allergy Rash Verified 08/19/19 20:38 latex Allergy Blisters Verified 08/19/19 20:38 Home Meds: Home Meds . [No Known Home Meds] 10/29/17 [History] Past Medical History HEENT History: Reports: Impaired Vision Other HEENT History: wears contacts Cardiovascular History: Reports: None Respiratory History: Reports: Asthma, Bronchitis, Recurrent Gastrointestinal History: Reports: GERD Genitourinary History: Reports: None STUDIO ASSISTANT History: Reports: , Other (See Below) Other STUDIO ASSISTANT History: currently is LMP 10/02/16; EDC 07/10/17. HPV IN FEMALE Musculoskeletal History: Reports: Back Pain, Chronic Other Musculoskeletal History: REPORTS JOINT PAIN INTERMITTENT Neurological History: Reports: Headaches, Chronic Psychiatric History: Reports: None Endocrine/Metabolic History: Reports: Obesity/BMI 30+ Hematologic History: Reports: Blood Transfusion(s) Immunologic History: Reports: None Oncologic (Cancer) History: Reports: None Dermatologic History: Reports: None - Infectious Disease History Infectious Disease History: Reports: Chicken Pox, Influenza - Past Surgical History Head Surgeries/Procedures: Reports: None HEENT Surgical History: Reports: None Cardiovascular Surgical History: Reports: None Respiratory Surgical History: Reports: None GI Surgical History: Reports: Appendectomy, EGD Female Surgical History: Reports: Section Endocrine Surgical History: Reports: None Neurological Surgical History: Reports: None Musculoskeletal Surgical History: Reports: None Oncologic Surgical History: Reports: None Dermatological Surgical History: Reports: None Social & Family History - Family History Family Medical History: Noncontributory - Tobacco Use Smoking Status *Q: Current Some Day Smoker Years of Tobacco use: 8 Packs/Tins Daily: 0.1 - Caffeine Use Caffeine Use: Reports: Tea Other Caffeine Use: AVERAGE OF 2 CUPS OF COFFEE, 3 CUPS OF TEA IN EVENING - Recreational Drug Use Recreational Drug Use: Yes Drug Use in Last 12 Months: Yes Recreational Drug Type: Reports: Marijuana/Hashish Recreational Drug Use Frequency: Rarely Recreational Drug Last Use: 08-18-2019 ED ROS GENERAL - Review of Systems Review Of Systems: Comprehensive ROS is negative, except as noted in HPI. ED EXAM, GI/ABD - Physical Exam Exam: See Below Exam Limited By: No Limitations General Appearance: Alert, WD/WN, No Apparent Distress Eyes: Bilateral: Normal Appearance, EOMI Ears: Normal External Exam, Hearing Grossly Normal Nose: Normal Inspection Throat/Mouth: Normal Inspection, Normal Voice, No Airway Compromise Head: Atraumatic, Normocephalic Neck: Normal Inspection, Supple, Non-Tender, Full Range of Motion Respiratory/Chest: No Respiratory Distress, Lungs Clear, Normal Breath Sounds, No Accessory Muscle Use, Chest Non-Tender Cardiovascular: Normal Peripheral Pulses, Regular Rate, Rhythm, No Edema, No Gallop, No JVD, No Murmur, No Rub GI/Abdominal Exam: Normal Bowel Sounds, Soft, No Organomegaly, No Distention, No Abnormal Bruit, Tender (right upper quadrant, right lower quadrant) (Female) Exam: Deferred Rectal (Female) Exam: Deferred Back Exam: Normal Inspection, Full Range of Motion, CVA Tenderness (R) Extremities: Normal Inspection, Normal Range of Motion, Non-Tender, Normal Capillary Refill, No Pedal Edema Neurological: Alert, Oriented, CN II-XII Intact, Normal Cognition, Normal Gait, Normal Reflexes, No Motor/Sensory Deficits Psychiatric: Normal Affect, Normal Mood Skin Exam: Warm, Dry, Intact, Normal Color, No Rash Lymphatic: No Adenopathy Course - Vital Signs Last Recorded V/S: Last Vital Signs Temp 97.6 F 08/19/19 22:10 Pulse 76 08/19/19 22:10 Resp 18 08/19/19 22:10 BP 118/68 08/19/19 22:10 Pulse Ox 100 08/19/19 22:10 - Orders/Labs/Meds Orders: Active Orders 24 hr Category Date Time Status Abdomen Pelvis w Cont [CT] Urgent Exams 08/19/19 21:52 Taken CULTURE URINE [RM] Stat Lab 08/19/19 20:31 Received Labs: Laboratory Tests 08/19/19 08/19/19 08/19/19 Range/Units 20:31 20:31 21:11 WBC 7.6 (5.0-10.0) 10^3/uL RBC 4.87 (4.2-5.4) 10^6/uL Hgb 14.3 (12.0-16.0) g/dL Hct 42.1 (37.0-47.0) % MCV 86.4 (80-100) fL MCH 29.4 (27.0-34.0) pg MCHC 34.0 (33.0-35.0) g/dL Plt Count 242 (150-450) 10^3/uL Neut % (Auto) 64.5 (42.2-75.2) % Lymph % (Auto) 21.8 (20.5-50.1) % [place] % (Auto) 7.6 (2-8) % Eos % (Auto) 5.8 H (1.0-3.0) % Baso % (Auto) 0.3 (0.0-1.0) % Sodium (135-145) mmol/L Potassium (3.6-5.0) mmol/L Chloride (101-111) mmol/L Carbon Dioxide (21.0-31.0) mmol/L Anion Gap BUN (7-18) mg/dL Creatinine (0.6-1.3) mg/dL Est Cr Clr Drug Dosing mL/min Estimated GFR (MDRD) BUN/Creatinine Ratio Glucose (74-105) mg/dL Calcium (8.4-10.2) mg/dl Total Bilirubin (0.2-1.0) mg/dL AST (10-42) IU/L ALT (10-60) IU/L Alkaline Phosphatase (42-121) IU/L Total Protein (6.7-8.2) g/dl Albumin (3.2-5.5) g/dl Globulin Albumin/Globulin Ratio Urine Color Yellow (YELLOW) Urine Appearance Slightly cloudy (CLEAR) Urine pH 7.0 (5.0-9.0) Ur Specific [place] 1.020 (1.005-1.030) Urine Protein Negative (NEGATIVE) Urine Glucose (UA) Negative (NEGATIVE) Urine Ketones Negative (NEGATIVE) Urine Occult Blood Negative (NEGATIVE) Urine Nitrite Negative (NEGATIVE) Urine Bilirubin Negative (NEGATIVE) Urine Urobilinogen 0.2 (0.2-1.0) mg/dL Ur Leukocyte Esterase Trace H (NEGATIVE) Urine RBC 0-5 /HPF Urine WBC 5-10 H (0-5/HPF) /HPF Ur Epithelial Cells Few (NOT SEEN) /HPF Amorphous Sediment Few (NOT SEEN) /HPF Urine Bacteria Few (0-FEW/HPF) /HPF Urine Mucus Few H (NOT SEEN) /LPF Urine HCG, Qual Negative 08/19/19 Range/Units 21:11 WBC (5.0-10.0) 10^3/uL RBC (4.2-5.4) 10^6/uL Hgb (12.0-16.0) g/dL Hct (37.0-47.0) % MCV (80-100) fL MCH (27.0-34.0) pg MCHC (33.0-35.0) g/dL Plt Count (150-450) 10^3/uL Neut % (Auto) (42.2-75.2) % Lymph % (Auto) (20.5-50.1) % [place] % (Auto) (2-8) % Eos % (Auto) (1.0-3.0) % Baso % (Auto) (0.0-1.0) % Sodium 136 (135-145) mmol/L Potassium 4.2 (3.6-5.0) mmol/L Chloride 103 (101-111) mmol/L Carbon Dioxide 25.0 (21.0-31.0) mmol/L Anion Gap 12.2 BUN 8 (7-18) mg/dL Creatinine 0.4 L (0.6-1.3) mg/dL Est Cr Clr Drug Dosing 181.69 mL/min Estimated GFR (MDRD) > 60 BUN/Creatinine Ratio 20.00 Glucose 100 (74-105) mg/dL Calcium 9.4 (8.4-10.2) mg/dl Total Bilirubin 0.5 (0.2-1.0) mg/dL AST 42 (10-42) IU/L ALT 89 H (10-60) IU/L Alkaline Phosphatase 70 (42-121) IU/L Total Protein 7.7 (6.7-8.2) g/dl Albumin 4.1 (3.2-5.5) g/dl Globulin 3.6 Albumin/Globulin Ratio 1.14 Urine Color (YELLOW) Urine Appearance (CLEAR) Urine pH (5.0-9.0) Ur Specific [place] (1.005-1.030) Urine Protein (NEGATIVE) Urine Glucose (UA) (NEGATIVE) Urine Ketones (NEGATIVE) Urine Occult Blood (NEGATIVE) Urine Nitrite (NEGATIVE) Urine Bilirubin (NEGATIVE) Urine Urobilinogen (0.2-1.0) mg/dL Ur Leukocyte Esterase (NEGATIVE) Urine RBC /HPF Urine WBC (0-5/HPF) /HPF Ur Epithelial Cells (NOT SEEN) /HPF Amorphous Sediment (NOT SEEN) /HPF Urine Bacteria (0-FEW/HPF) /HPF Urine Mucus (NOT SEEN) /LPF Urine HCG, Qual Meds: Medications Discontinued Medications Generic Name Dose Route Start Last Admin Trade Name Freq PRN Reason Stop Dose Admin Iopamidol 100 ml 08/19/19 21:52 08/19/19 23:26 Isovue-300 (61%) IVPUSH 08/19/19 21:53 75 ml ONETIME ONE Administration - Radiology Interpretation Free Text/Narrative:: CT Abdomen/Pelvis with contrast: FINDINGS: Liver: 1.2 cm indeterminate low-attenuation lesion within segment 5 of the liver (image 31, series 2) which was not definitely visualized on the prior study. This may be secondary due to different phase of imaging. Gallbladder and bile ducts: Normal. No calcified stones. No ductal dilation. Pancreas: Normal. No ductal dilation. Spleen: Normal. No splenomegaly. Adrenals: Normal. No mass. Kidneys and ureters: Normal. No hydronephrosis. Stomach and bowel: Fluid-filled nondilated small bowel loops. Appendix: Appendectomy. Intraperitoneal space: Unremarkable. No free air. No significant fluid collection. Vasculature: Unremarkable. No abdominal aortic aneurysm. Lymph nodes: Unremarkable. No enlarged lymph nodes. Bladder: Unremarkable as visualized. Reproductive: Unremarkable as visualized. Bones/joints: Unremarkable. No acute fracture. Soft tissues: There is a small fat-containing umbilical hernia. IMPRESSION: 1. Fluid-filled nondilated small bowel loops. Finding can be associated with ileus/gastroenteritis. 2. No obstructive uropathy. 3. 1.2 cm indeterminate low-attenuation lesion within segment 5 of the liver which was not definitely visualized on the prior study. This may be secondary due to different phase of imaging. 4. Additional nonemergent CT findings above. Thank you for allowing us to participate in the care of your patient. Dictated and Authenticated by: Richa Gabriel MD 08/19/2019 11:35 PM Central Time ([place] & [place]) See rad report Departure - Departure Time of Disposition: 23:45 Disposition: Home, Self-Care 01 Condition: Fair Clinical Impression: Constipation Qualifiers: Constipation type: unspecified constipation type Qualified Code(s): K59.00 - Constipation, unspecified - Discharge Information *PRESCRIPTION DRUG MONITORING PROGRAM REVIEWED*: No *COPY OF PRESCRIPTION DRUG MONITORING REPORT IN PATIENT SONNY: No Instructions: Constipation, Adult, [id number], Abdominal Pain, Adult, Easy-to -Read Referrals: Jodi Zheng MD [Primary Care Provider] - Forms: ED Department Discharge Additional Instructions: Drink plenty of water May use Miralax over the counter for constipation Follow up with your primary care facility if no improvement Sepsis Event Note - Evaluation Sepsis Screening Result: No Definite Risk - Focused Exam Vital Signs: Vital Signs Temp Temp Pulse Resp BP BP Pulse Ox 08/19/19 22:10 97.6 F 76 18 118/68 100 08/19/19 20:10 96.8 F 96.8 F 77 18 122/69 122/69 100 Date Exam was Performed: 08/20/19 Time Exam was Performed: 00:12 - My Orders Last 24 Hours: My Active Orders 08/19/19 20:31 CULTURE URINE [RM] Stat 08/19/19 21:52 Abdomen Pelvis w Cont [CT] Urgent - Assessment/Plan Last 24 Hours: My Active Orders 08/19/19 20:31 CULTURE URINE [RM] Stat 08/19/19 21:52 Abdomen Pelvis w Cont [CT] Urgent
[2019-08-19 22:11] VITALS: BP 118/68; PULSE 76
== END 2019-08-19 23:55 | disposition home or self-care (01) ==
LOC: DL.ED 18:50
DX: K59.00 Constipation, unspecified (principal); F17.210 Nicotine dependence, cigarettes, uncomplicated; Z88.0 Allergy status to penicillin; Z91.040 Latex allergy status
CPT/HCPCS: 36415; 74177; 80053; 81001; 81025; 85025; 87086; 99284; Q9967

== ENCOUNTER 2019-09-22 14:44 | Emergency (ER) | payer MEDICAID ==
[2019-09-22 15:13] VITALS: BP 130/71; PULSE 67
[2019-09-22 15:24] LABS: ANION GAP 11.5; CHLORIDE,CL 107 mmol/L (101-111); SODIUM,NA 137 mmol/L (135-145)
[2019-09-22] MEDS ORDERED: Ketorolac 30 MG/ML SDV IVPUSH ONE (16:05)
--- NOTE | 2019-09-22 16:08 | EDM.PDOC ---
ED HPI GENERAL MEDICAL PROBLEM - General Chief Complaint: Chest Pain Stated Complaint: CHEST PAIN Time Seen by Provider: 09/22/19 16:05 Source of Information: Reports: Patient History Limitations: Reports: No Limitations - History of Present Illness INITIAL COMMENTS - FREE TEXT/NARRATIVE: sudden onset mid chest pain while talking at work yesterday, sharp on-off but today lasting longer, got worried, denies prior h/o, denies injury Chest Pain Score (Numeric/FACES): 3 - Related Data Allergies Allergy/AdvReac Type Severity Reaction Status Date / Time amoxicillin [Amoxicillin] Allergy Rash Verified 09/22/19 14:54 latex Allergy Blisters Verified 09/22/19 14:54 Home Meds: Home Meds . 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 HPV IN FEMALE Musculoskeletal History: Reports: Back Pain, Chronic Other Musculoskeletal History: REPORTS JOINT PAIN INTERMITTENT Neurological History: Reports: Headaches, Chronic Psychiatric History: Reports: None Endocrine/Metabolic History: Reports: Obesity/BMI 30+ Hematologic History: Reports: Blood Transfusion(s) Immunologic History: Reports: None Oncologic (Cancer) History: Reports: None Dermatologic History: Reports: None - Infectious Disease History Infectious Disease History: Reports: Chicken Pox, Influenza - Past Surgical History Head Surgeries/Procedures: Reports: None HEENT Surgical History: Reports: None Cardiovascular Surgical History: Reports: None Respiratory Surgical History: Reports: None GI Surgical History: Reports: Appendectomy, EGD Female Surgical History: Reports: Section Endocrine Surgical History: Reports: None Neurological Surgical History: Reports: None Musculoskeletal Surgical History: Reports: None Oncologic Surgical History: Reports: None Dermatological Surgical History: Reports: None Social & Family History - Family History Family Medical History: Noncontributory - Tobacco Use Smoking Status *Q: Never Smoker Second Hand Smoke Exposure: No - Caffeine Use Caffeine Use: Reports: Coffee, Tea Other Caffeine Use: AVERAGE OF 2 CUPS OF COFFEE, 3 CUPS OF TEA IN EVENING - Recreational Drug Use Recreational Drug Use: No ED ROS GENERAL - Review of Systems Review Of Systems: Comprehensive ROS is negative, except as noted in HPI. ED EXAM, GENERAL - Physical Exam Exam: See Below Exam Limited By: No Limitations General Appearance: Alert, WD/WN, Mild Distress, Moderate Distress, Other ( discomfort) Eye Exam: Bilateral Eye: PERRL (pupils ER @ 4mm) Ears: Hearing Grossly Normal Throat/Mouth: Normal Voice, No Airway Compromise Head: Atraumatic Neck: Non-Tender, Full Range of Motion Respiratory/Chest: No Respiratory Distress Cardiovascular: Regular Rate, Rhythm GI/Abdominal: Soft, Non-Tender Neurological: Alert, Oriented, Normal Cognition, Normal Gait, No Motor/Sensory Deficits Psychiatric: Flat Affect, Tearful Skin Exam: Warm, Dry, Normal Color Lymphatic: No Adenopathy Course - Vital Signs Last Recorded V/S: Last Vital Signs Temp 37.2 C 09/22/19 15:12 Pulse 67 09/22/19 15:12 Resp 18 09/22/19 15:12 BP 130/71 09/22/19 15:12 Pulse Ox 99 09/22/19 15:12 - Orders/Labs/Meds Orders: Active Orders 24 hr Category Date Time Status EKG 12 Lead [EKG Documentation Completion] [RC] STAT Care 09/22/19 14:59 Active CULTURE URINE [RM] Stat Lab 09/22/19 15:10 Received Labs: Laboratory Tests 09/22/19 09/22/19 09/22/19 Range/Units 14:58 14:58 14:58 WBC 7.9 (5.0-10.0) 10^3/uL RBC 4.84 (4.2-5.4) 10^6/uL Hgb 14.2 (12.0-16.0) g/dL Hct 41.4 (37.0-47.0) % MCV 85.5 (80-100) fL MCH 29.3 (27.0-34.0) pg MCHC 34.3 (33.0-35.0) g/dL Plt Count 253 (150-450) 10^3/uL Neut % (Auto) 64.4 (42.2-75.2) % Lymph % (Auto) 25.1 (20.5-50.1) % [place] % (Auto) 6.3 (2-8) % Eos % (Auto) 4.1 H (1.0-3.0) % Baso % (Auto) 0.1 (0.0-1.0) % D-Dimer, Quantitative < 100 (0-400) ng/mL Sodium 137 (135-145) mmol/L Potassium 3.5 L (3.6-5.0) mmol/L Chloride 107 (101-111) mmol/L Carbon Dioxide 22.0 (21.0-31.0) mmol/L Anion Gap 11.5 BUN 7 (7-18) mg/dL Creatinine 0.5 L (0.6-1.3) mg/dL Est Cr Clr Drug Dosing 145.35 mL/min Estimated GFR (MDRD) > 60 BUN/Creatinine Ratio 14.00 Glucose 146 H (74-105) mg/dL Calcium 9.1 (8.4-10.2) mg/dl Total Bilirubin 0.4 (0.2-1.0) mg/dL AST 77 H (10-42) IU/L ALT 169 H (10-60) IU/L Alkaline Phosphatase 73 (42-121) IU/L Troponin I < 0.02 (0.00-0.02) ng/ml Total Protein 7.9 (6.7-8.2) g/dl Albumin 4.4 (3.2-5.5) g/dl Globulin 3.5 Albumin/Globulin Ratio 1.26 Urine Color (YELLOW) Urine Appearance (CLEAR) Urine pH (5.0-9.0) Ur Specific [place] (1.005-1.030) Urine Protein (NEGATIVE) Urine Glucose (UA) (NEGATIVE) Urine Ketones (NEGATIVE) Urine Occult Blood (NEGATIVE) Urine Nitrite (NEGATIVE) Urine Bilirubin (NEGATIVE) Urine Urobilinogen (0.2-1.0) mg/dL Ur Leukocyte Esterase (NEGATIVE) Urine RBC /HPF Urine WBC (0-5/HPF) /HPF Ur Epithelial Cells (NOT SEEN) /HPF Urine Bacteria (0-FEW/HPF) /HPF Urine Mucus (NOT SEEN) /LPF Urine HCG, Qual Urine Opiates Screen (NEGATIVE) Ur Oxycodone Screen (NEGATIVE) Urine Methadone Screen (NEGATIVE) Ur Barbiturates Screen (NEGATIVE) U Tricyclic Antidepress (NEGATIVE) Ur Phencyclidine Scrn (NEGATIVE) Ur Amphetamine Screen (NEGATIVE) U Methamphetamines Scrn (NEGATIVE) Urine MDMA Screen (NEGATIVE) U Benzodiazepines Scrn (NEGATIVE) Urine Cocaine Screen (NEGATIVE) U Marijuana (THC) Screen (NEGATIVE) Ethyl Alcohol < 5 mg/dL 09/22/19 09/22/19 09/22/19 Range/Units 15:10 15:10 15:10 WBC (5.0-10.0) 10^3/uL RBC (4.2-5.4) 10^6/uL Hgb (12.0-16.0) g/dL Hct (37.0-47.0) % MCV (80-100) fL MCH (27.0-34.0) pg MCHC (33.0-35.0) g/dL Plt Count (150-450) 10^3/uL Neut % (Auto) (42.2-75.2) % Lymph % (Auto) (20.5-50.1) % [place] % (Auto) (2-8) % Eos % (Auto) (1.0-3.0) % Baso % (Auto) (0.0-1.0) % D-Dimer, Quantitative (0-400) ng/mL Sodium (135-145) mmol/L Potassium (3.6-5.0) mmol/L Chloride (101-111) mmol/L Carbon Dioxide (21.0-31.0) mmol/L Anion Gap BUN (7-18) mg/dL Creatinine (0.6-1.3) mg/dL Est Cr Clr Drug Dosing mL/min Estimated GFR (MDRD) BUN/Creatinine Ratio Glucose (74-105) mg/dL Calcium (8.4-10.2) mg/dl Total Bilirubin (0.2-1.0) mg/dL AST (10-42) IU/L ALT (10-60) IU/L Alkaline Phosphatase (42-121) IU/L Troponin I (0.00-0.02) ng/ml Total Protein (6.7-8.2) g/dl Albumin (3.2-5.5) g/dl Globulin Albumin/Globulin Ratio Urine Color Yellow (YELLOW) Urine Appearance Slightly cloudy (CLEAR) Urine pH 7.0 (5.0-9.0) Ur Specific [place] 1.025 (1.005-1.030) Urine Protein Negative (NEGATIVE) Urine Glucose (UA) Negative (NEGATIVE) Urine Ketones Negative (NEGATIVE) Urine Occult Blood Negative (NEGATIVE) Urine Nitrite Negative (NEGATIVE) Urine Bilirubin Negative (NEGATIVE) Urine Urobilinogen 0.2 (0.2-1.0) mg/dL Ur Leukocyte Esterase Moderate H (NEGATIVE) Urine RBC 0-5 /HPF Urine WBC 10-20 H (0-5/HPF) /HPF Ur Epithelial Cells Few (NOT SEEN) /HPF Urine Bacteria Few (0-FEW/HPF) /HPF Urine Mucus Few H (NOT SEEN) /LPF Urine HCG, Qual Negative Urine Opiates Screen Negative (NEGATIVE) Ur Oxycodone Screen Negative (NEGATIVE) Urine Methadone Screen Negative (NEGATIVE) Ur Barbiturates Screen Negative (NEGATIVE) U Tricyclic Antidepress Negative (NEGATIVE) Ur Phencyclidine Scrn Negative (NEGATIVE) Ur Amphetamine Screen Negative (NEGATIVE) U Methamphetamines Scrn Negative (NEGATIVE) Urine MDMA Screen Negative (NEGATIVE) U Benzodiazepines Scrn Negative (NEGATIVE) Urine Cocaine Screen Negative (NEGATIVE) U Marijuana (THC) Screen Negative (NEGATIVE) Ethyl Alcohol mg/dL Meds: Medications Discontinued Medications Generic Name Dose Route Start Last Admin Trade Name Freq PRN Reason Stop Dose Admin Ceftriaxone Sodium 1,000 mg/ 100 mls @ 200 mls/hr 09/22/19 16:58 09/22/19 17: 28 Sodium Chloride IV 09/22/19 17:27 200 mls/hr ONETIME ONE Administration Ketorolac Tromethamine 30 mg 09/22/19 16:05 09/22/19 16:16 Toradol IVPUSH 09/22/19 16:06 30 mg ONETIME ONE Administration - Re-Assessments/Exams Free Text/Narrative Re-Assessment/Exam: 09/22/19 17:00 results discussed with pt who denies UTI Sx but her upper back does ache. IV toradol did '0' still has on-off sharp pain Departure - Departure Time of Disposition: 18:19 Disposition: Home, Self-Care 01 Condition: Good Clinical Impression: Anterior chest wall pain UTI (urinary tract infection) Qualifiers: Urinary tract infection type: site unspecified Hematuria presence: without hematuria Qualified Code(s): N39.0 - Urinary tract infection, site not specified Instructions: Nonspecific Chest Pain, Pjne-[id number] Forms: ED Department Discharge Additional Instructions: 1) rest 2) see clinic tomorrow for STRESS TEST, ECHOCARDIOGRAM, HOLTER MONITOR 3) drink lots of liquids rx given; keflex 250mg qid x 40 Sepsis Event Note - Evaluation Sepsis Screening Result: No Definite Risk - Focused Exam Vital Signs: Vital Signs Temp Pulse Resp BP Pulse Ox 09/22/19 15:12 37.2 C 67 18 130/71 99 Date Exam was Performed: 09/22/19 Time Exam was Performed: 18:19 - My Orders Last 24 Hours: My Active Orders 09/22/19 14:59 EKG 12 Lead [EKG Documentation Completion] [RC] STAT 09/22/19 15:10 CULTURE URINE [RM] Stat - Assessment/Plan Last 24 Hours: My Active Orders 09/22/19 14:59 EKG 12 Lead [EKG Documentation Completion] [RC] STAT 09/22/19 15:10 CULTURE URINE [RM] Stat
== END 2019-09-22 18:30 | disposition home or self-care (01) ==
LOC: DL.ED 14:44
DX: R07.89 Other chest pain (principal); N39.0 Urinary tract infection, site not specified; E66.9 Obesity, unspecified; Z68.34 Body mass index [BMI] 34.0-34.9, adult; Z91.040 Latex allergy status; Z88.1 Allergy status to other antibiotic agents
CPT/HCPCS: 36415; 80053; 80305; 80307; 81001; 81025; 84484; 85025; 85379; 87086; 93005; 96365; 96375; 99285; J0696; J1885; J7050; 87088; 87186

== ENCOUNTER 2020-08-21 17:08 | Emergency (ER) | payer MEDICAID ==
[2020-08-21 17:30] VITALS: BP 111/69; PULSE 62
--- NOTE | 2020-08-21 17:52 | CR ---
PROCEDURE INFORMATION: Exam: XR Right Shoulder Exam date and time: 08/21/2020 5:39 PM Age: 35 years old Clinical indication: Other: Fall; Additional info: Fell in bath, RT shoulder pain/injury TECHNIQUE: Imaging protocol: XR Right shoulder. Views: 2 or more views. COMPARISON: No relevant prior studies available. FINDINGS: Bones/joints: There is no evidence of fracture or dislocation. The acromioclavicular joint is normal. The subacromial joint space is well-preserved. The glenohumeral joint is normal. No joint effusion is present. Soft tissues: There are no soft tissue calcifications or masses. IMPRESSION: Normal shoulder radiographs.
[2020-08-21] MEDS ORDERED: Cyclobenzaprine 10 MG Tab PO ONE (18:11)
[2020-08-21] MEDS ORDERED: Ketorolac 30 MG/ML SDV IM ONE (18:11)
--- NOTE | 2020-08-21 18:18 | EDM.PDOC ---
Scribed by Maria T Conway 08/21/20 [id number] for Abhay Mcadams MD ED HPI GENERAL MEDICAL PROBLEM - General Chief Complaint: Upper Extremity Injury/Pain Stated Complaint: BROKEN RIGHT ARM Time Seen by Provider: 08/21/20 17:35 Source of Information: Reports: Patient, RN, RN Notes Reviewed History Limitations: Reports: No Limitations - History of Present Illness INITIAL COMMENTS - FREE TEXT/NARRATIVE: Patient presents to ED by POV. Patient states she fell in shower this morning at 0600, striking her right shoulder on the tub wall. Patient states pain in right scapula, acromion, and clavicle. She is unable to lift arm or move without pain. Rates pain 7/10, increased with palpation. She has tried ice with no relief. Patient is guarding right arm. She does not recall any popping noises or feeling a pop. Denies any other area of injury. Onset: Today Duration: Getting Worse Location: Reports: Upper Extremity, Right Quality: Reports: Ache Severity: Moderate Improves with: Reports: None Worsens with: Reports: None Associated Symptoms: Reports: No Other Symptoms right shoulder Pain Score (Numeric/FACES): 7 - Related Data Allergies Allergy/AdvReac Type Severity Reaction Status Date / Time amoxicillin [Amoxicillin] Allergy Rash Verified 08/21/20 17:43 latex Allergy Blisters Verified 08/21/20 17:43 Home Meds: Home Meds . 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 HPV IN FEMALE Musculoskeletal History: Reports: Back Pain, Chronic Other Musculoskeletal History: REPORTS JOINT PAIN INTERMITTENT Neurological History: Reports: Headaches, Chronic Psychiatric History: Reports: None Endocrine/Metabolic History: Reports: Obesity/BMI 30+ Hematologic History: Reports: Blood Transfusion(s) Immunologic History: Reports: None Oncologic (Cancer) History: Reports: None Dermatologic History: Reports: None - Infectious Disease History Infectious Disease History: Reports: Chicken Pox, Influenza - Past Surgical History Head Surgeries/Procedures: Reports: None HEENT Surgical History: Reports: None Cardiovascular Surgical History: Reports: None Respiratory Surgical History: Reports: None GI Surgical History: Reports: Appendectomy, EGD Female Surgical History: Reports: Section Endocrine Surgical History: Reports: None Neurological Surgical History: Reports: None Musculoskeletal Surgical History: Reports: None Oncologic Surgical History: Reports: None Dermatological Surgical History: Reports: None Social & Family History - Family History Family Medical History: No Pertinent Family History - Caffeine Use Caffeine Use: Reports: Coffee, Tea Other Caffeine Use: AVERAGE OF 2 CUPS OF COFFEE, 3 CUPS OF TEA IN EVENING - Living Situation & Occupation Living situation: Reports: with Family Occupation: Employed Review of Systems - Review of Systems Review Of Systems: Comprehensive ROS is negative, except as noted in HPI. ED EXAM, GENERAL - Physical Exam Exam: See Below Exam Limited By: No Limitations General Appearance: Alert, WD/WN, No Apparent Distress, Obese Eye Exam: Bilateral Eye: EOMI, Normal Inspection, PERRL Ears: Normal External Exam, Normal Canal, Hearing Grossly Normal, Normal TMs Nose: Normal Inspection, Normal Mucosa, No Blood Throat/Mouth: Normal Inspection, Normal Lips, Normal Teeth, Normal Gums, Normal Oropharynx, Normal Voice, No Airway Compromise Head: Atraumatic, Normocephalic Neck: Normal Inspection, Supple, Non-Tender, Full Range of Motion Respiratory/Chest: No Respiratory Distress, Lungs Clear, Normal Breath Sounds, No Accessory Muscle Use, Chest Non-Tender Cardiovascular: Normal Peripheral Pulses, Regular Rate, Rhythm (Female) Exam: Deferred Rectal (Female) Exam: Deferred Back Exam: Normal Inspection, Full Range of Motion, NT Extremities: Normal Capillary Refill, Arm Pain (Right shoulder with decreased ROM and generalized tenderness, no visible bruising, swelling, or deformity) Neurological: Alert, Oriented, CN II-XII Intact, Normal Cognition, Normal Gait, Normal Reflexes, No Motor/Sensory Deficits Psychiatric: Normal Affect, Normal Mood Skin Exam: Warm, Dry, Intact, Normal Color, No Rash Course - Vital Signs Last Recorded V/S: Last Vital Signs Temp 96.6 F L 08/21/20 17:29 Pulse 62 08/21/20 17:29 Resp 16 08/21/20 17:29 BP 111/69 08/21/20 17:29 Pulse Ox 99 02/05/21 17:29 - Orders/Labs/Meds Orders: Active Orders 24 hr Category Date Time Status DME for Discharge [COMM] Routine Oth 08/21/20 18:12 Ordered Meds: Medications Discontinued Medications Generic Name Dose Route Start Last Admin Trade Name Apolinar PRN Reason Stop Dose Admin Cyclobenzaprine HCl 10 mg 08/21/20 18:11 Flexeril PO 08/21/20 18:12 ONETIME ONE Ketorolac Tromethamine 60 mg 08/21/20 18:11 Toradol IM 08/21/20 18:12 ONETIME ONE - Radiology Interpretation Free Text/Narrative:: [facility] [place] [facility] Final Radiology Report Call: [phone] assistance Online chat: [email or web address] Name: LAMONTE NUÑEZ Age: 35Years F Date: 08/21/2020 SSN: -- : [id number] Study: CR SHOULDER COMP RT Requesting Physician: ABHAY MCADAMS Images: 3 Addl Studies: Provided Clinical History: fell in bath, Rt shoulder pain/injury Contrast: Contrast Medium: Contrast Amount: Contrast Method: CONFIDENTIALITY STATEMENT This report is intended only for use by the referring physician, and only in accordance with law. If you received this in error, call [phone]. Page 1 of 1 PROCEDURE INFORMATION: Exam: XR Right Shoulder Exam date and time: 08/21/2020 5:39 PM Age: 35 years old Clinical indication: Other: Fall; Additional info: Fell in bath, RT shoulder pain/injury TECHNIQUE: Imaging protocol: XR Right shoulder. Views: 2 or more views. COMPARISON: No relevant prior studies available. FINDINGS: Bones/joints: There is no evidence of fracture or dislocation. The acromioclavicular joint is normal. The subacromial joint space is well-preserved. The glenohumeral joint is normal. No joint effusion is present. Soft tissues: There are no soft tissue calcifications or masses. IMPRESSION: Normal shoulder radiographs. Thank you for allowing us to participate in the care of your patient. Dictated and Authenticated by: Eber Walker MD 08/21/2020 5:52 PM Central Time ([place] & [place]) Departure - Departure Time of Disposition: 18:15 Disposition: Home, Self-Care 01 Condition: Good Clinical Impression: Right shoulder strain Qualifiers: Encounter type: initial encounter Qualified Code(s): S46.911A - Strain of unspecified muscle, fascia and tendon at shoulder and upper arm level, right arm, initial encounter Contusion of right shoulder Qualifiers: Encounter type: initial encounter Qualified Code(s): S40.011A - Contusion of right shoulder, initial encounter Fall as cause of accidental injury at home as place of occurrence Qualifiers: Encounter type: initial encounter Qualified Code(s): W19.XXXA - Unspecified fall, initial encounter; Y92.009 - Unspecified place in unspecified non- institutional (private) residence as the place of occurrence of the external cause - Discharge Information *PRESCRIPTION DRUG MONITORING PROGRAM REVIEWED*: Not Applicable *COPY OF PRESCRIPTION DRUG MONITORING REPORT IN PATIENT SONNY: Not Applicable Instructions: Shoulder Pain, [id number], How To Use a Sling, [id number] Forms: ED Department Discharge Additional Instructions: Rx: Naprosyn 500mg *Take with food. Rx: Cyclobenzaprine 10mg *Do not work or drive while under the influence of this medication. Remove the right arm sling several times a day to maintain right shoulder range of motion. Follow up in clinic next week if not improving as expected. Sepsis Event Note (ED) - Evaluation Sepsis Screening Result: No Definite Risk - Focused Exam Vital Signs: Vital Signs Temp Pulse Resp BP Pulse Ox 08/21/20 17:29 96.6 F L 62 16 111/69 99 - My Orders Last 24 Hours: My Active Orders 08/21/20 18:12 DME for Discharge [COMM] Routine - Assessment/Plan Last 24 Hours: My Active Orders 08/21/20 18:12 DME for Discharge [COMM] Routine I have read and agree with the documentation that has been completed regarding this visit. By signing this record, I attest that the documentation was completed in my physical presence and is an accurate record of the encounter.
== END 2020-08-21 18:58 | disposition home or self-care (01) ==
LOC: DL.ED 17:08
DX: S46.911A Strain of unspecified muscle, fascia and tendon at shoulder and upper arm level, right arm, initial encounter (principal); J45.909 Unspecified asthma, uncomplicated; E66.9 Obesity, unspecified; W18.2XXA Fall in (into) shower or empty bathtub, initial encounter; Z88.0 Allergy status to penicillin; Z91.040 Latex allergy status; Z68.33 Body mass index [BMI] 33.0-33.9, adult
CPT/HCPCS: 73030; 96372; 99283; A9270; J1885

== ENCOUNTER 2020-09-21 12:58 | Emergency (ER) | payer MEDICAID ==
[2020-09-21] MEDS ORDERED: diphenhydrAMINE 50 MG Cap PO ONE (13:03)
[2020-09-21] MEDS ORDERED: methylPREDNISolone Sodium Succinate 125 MG/2 ML SDV IM ONE (13:04)
[2020-09-21 13:24] VITALS: BP 106/78; PULSE 83
--- NOTE | 2020-09-21 13:29 | EDM.PDOC ---
ED HPI GENERAL MEDICAL PROBLEM - General Chief Complaint: Allergic Reaction Stated Complaint: ALLERGIC REACTION Time Seen by Provider: 09/21/20 13:20 Source of Information: Reports: Patient, Old Records, RN, RN Notes Reviewed History Limitations: Reports: No Limitations - History of Present Illness INITIAL COMMENTS - FREE TEXT/NARRATIVE: Pt presents to ER with c/o generalized itching, and hives. The hives began shortly after eating steamed vegetables from the cafeteria. Denies swelling of face, lips, tongue, or throat. Denies difficulty breathing, cough, or wheezing. Onset: Today Duration: Constant, Getting Worse Location: Reports: Face, Generalized Quality: Reports: Other (Denies pain) Severity: Moderate Improves with: Reports: None Worsens with: Reports: None Associated Symptoms: Reports: No Other Symptoms - Related Data Allergies Allergy/AdvReac Type Severity Reaction Status Date / Time amoxicillin [Amoxicillin] Allergy Rash Verified 08/21/20 17:43 latex Allergy Blisters Verified 08/21/20 17:43 Home Meds: Home Meds . 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 Musculoskeletal History: Reports: Back Pain, Chronic Other Musculoskeletal History: REPORTS JOINT PAIN INTERMITTENT Neurological History: Reports: Headaches, Chronic Psychiatric History: Reports: None Endocrine/Metabolic History: Reports: Obesity/BMI 30+ Hematologic History: Reports: Blood Transfusion(s) Immunologic History: Reports: None Oncologic (Cancer) History: Reports: None Dermatologic History: Reports: None - Infectious Disease History Infectious Disease History: Reports: Chicken Pox, Influenza - Past Surgical History Head Surgeries/Procedures: Reports: None HEENT Surgical History: Reports: None Cardiovascular Surgical History: Reports: None Respiratory Surgical History: Reports: None GI Surgical History: Reports: Appendectomy, EGD Female Surgical History: Reports: Section Endocrine Surgical History: Reports: None Neurological Surgical History: Reports: None Musculoskeletal Surgical History: Reports: None Oncologic Surgical History: Reports: None Dermatological Surgical History: Reports: None Social & Family History - Family History Family Medical History: No Pertinent Family History - Tobacco Use Tobacco Use Status *Q: Never Tobacco User - Caffeine Use Caffeine Use: Reports: None Other Caffeine Use: AVERAGE OF 2 CUPS OF COFFEE, 3 CUPS OF TEA IN EVENING - Recreational Drug Use Recreational Drug Use: No - Living Situation & Occupation Living situation: Reports: with Family Occupation: Employed ED ROS ALLERGIC REACTION - Review of Systems Review Of Systems: Comprehensive ROS is negative, except as noted in HPI. ED EXAM GENERAL NO PERIP PULSE - Physical Exam Exam: See Below Exam Limited By: No Limitations General Appearance: Alert, WD/WN, No Apparent Distress Eye Exam: Bilateral Eye: Normal Inspection Ears: Normal External Exam Nose: Normal Inspection, Normal Mucosa, No Blood Throat/Mouth: Normal Inspection, Normal Lips, Normal Teeth, Normal Gums, Normal Oropharynx, Normal Voice, No Airway Compromise Head: Atraumatic, Normocephalic Neck: Normal Inspection, Supple, Non-Tender, Full Range of Motion. No: Lymphadenopathy (L), Other Respiratory/Chest: No Respiratory Distress, Lungs Clear, Normal Breath Sounds, No Accessory Muscle Use, Chest Non-Tender Cardiovascular: Normal Peripheral Pulses, Regular Rate, Rhythm, No Edema, No Gallop, No JVD, No Murmur, No Rub GI/Abdominal: Normal Bowel Sounds, Soft, Non-Tender Back Exam: Normal Inspection Extremities: Normal Inspection Neurological: Alert, Oriented, CN II-XII Intact, Normal Cognition, Normal Gait, No Motor/Sensory Deficits Psychiatric: Normal Mood Skin Exam: Warm, Dry, Intact, Rash (Urticaria to face, neck, chest, back, and upper extremities) Course - Vital Signs Last Recorded V/S: Last Vital Signs Temp 99.3 F 09/21/20 13:16 Pulse 83 09/21/20 13:16 Resp 18 09/21/20 13:16 BP 106/78 09/21/20 13:16 Pulse Ox 99 09/21/20 13:16 - Orders/Labs/Meds Meds: Medications Discontinued Medications Generic Name Dose Route Start Last Admin Trade Name Ciriloq PRN Reason Stop Dose Admin Diphenhydramine HCl 50 mg 09/21/20 13:03 09/21/20 13:12 Benadryl PO 09/21/20 13:04 50 mg ONETIME ONE Administration Methylprednisolone Sodium Succinate 125 mg 09/21/20 13:04 09/21/20 13:12 Solu-Medrol IM 09/21/20 13:05 125 mg ONETIME ONE Administration Departure - Departure Time of Disposition: 13:41 Disposition: Home, Self-Care 01 Condition: Good Clinical Impression: Allergic urticaria - Discharge Information *PRESCRIPTION DRUG MONITORING PROGRAM REVIEWED*: Not Applicable *COPY OF PRESCRIPTION DRUG MONITORING REPORT IN PATIENT SONNY: Not Applicable Instructions: Food Allergy, Hives, [id number] Forms: ED Department Discharge Additional Instructions: Rx: Zyrtec 10mg Rx: Prednisone 20mg Follow up in clinic if not completely improved in 24 hours. Return to ER if worse at any time. Sepsis Event Note (ED) - Evaluation Sepsis Screening Result: No Definite Risk - Focused Exam Vital Signs: Vital Signs Temp Pulse Resp BP Pulse Ox 09/21/20 13:16 99.3 F 83 18 106/78 99
== END 2020-09-21 13:50 | disposition home or self-care (01) ==
LOC: DL.ED 12:58
DX: L50.0 Allergic urticaria (principal); J45.909 Unspecified asthma, uncomplicated; E66.9 Obesity, unspecified; Z68.33 Body mass index [BMI] 33.0-33.9, adult; Z88.0 Allergy status to penicillin; Z91.040 Latex allergy status
CPT/HCPCS: 96372; 99282; J2930; Q0163

== ENCOUNTER 2020-12-09 10:33 | Emergency (ER) | payer MEDICAID ==
[2020-12-09 10:48] VITALS: BP 108/77; PULSE 77
[2020-12-09] MEDS ORDERED: Bacitracin Oint 1 GM U/D Packet TOP ONE (11:18)
--- NOTE | 2020-12-09 11:24 | EDM.PDOC ---
ED HPI GENERAL MEDICAL PROBLEM - General Chief Complaint: Skin Complaint Stated Complaint: LEFT BIG TOE INFECTED?PAIN SWOLLEN RED/PURPLE Time Seen by Provider: 12/09/20 11:15 Source of Information: Reports: Patient History Limitations: Reports: No Limitations - History of Present Illness INITIAL COMMENTS - FREE TEXT/NARRATIVE: This 35 yo female patient reports to the ED with swelling and redness of her left great toe. The patient reports she started noticing the inflammation on Monday, but it has continued to get worse. Duration: Day(s):, Constant, Getting Worse Location: Reports: Lower Extremity, Left Quality: Reports: Ache Severity: Mild Improves with: Reports: None Worsens with: Reports: None Context: Reports: Other Associated Symptoms: Reports: No Other Symptoms Left Toe-Hailux Pain Score (Numeric/FACES): 2 - Related Data Allergies Allergy/AdvReac Type Severity Reaction Status Date / Time amoxicillin [Amoxicillin] Allergy Rash Verified 12/09/20 10:43 latex Allergy Blisters Verified 12/09/20 10:43 Home Meds: Home Meds Multivitamin [Multi-Vitamin Daily] 1 tab PO DAILY 12/09/20 [History] Past Medical History HEENT History: Reports: Impaired Vision Other HEENT History: wears contacts Cardiovascular History: Reports: None Respiratory History: Reports: Asthma, Bronchitis, Recurrent Gastrointestinal History: Reports: GERD Genitourinary History: Reports: None 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: , 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 Below) 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 History: HPV IN FEMALE Musculoskeletal History: Reports: Back Pain, Chronic Other Musculoskeletal History: REPORTS JOINT PAIN INTERMITTENT Neurological History: Reports: Headaches, Chronic Psychiatric History: Reports: None Endocrine/Metabolic History: Reports: Obesity/BMI 30+ Hematologic History: Reports: Blood Transfusion(s) Immunologic History: Reports: None Oncologic (Cancer) History: Reports: None Dermatologic History: Reports: None - Infectious Disease History Infectious Disease History: Reports: Chicken Pox, Influenza - Past Surgical History Head Surgeries/Procedures: Reports: None HEENT Surgical History: Reports: None Cardiovascular Surgical History: Reports: None Respiratory Surgical History: Reports: None GI Surgical History: Reports: Appendectomy, EGD Female Surgical History: Reports: Section Endocrine Surgical History: Reports: None Neurological Surgical History: Reports: None Musculoskeletal Surgical History: Reports: None Oncologic Surgical History: Reports: None Dermatological Surgical History: Reports: None Social & Family History - Family History Family Medical History: No Pertinent Family History - Tobacco Use Tobacco Use Status *Q: Never Tobacco User - Caffeine Use Caffeine Use: Reports: Soda Other Caffeine Use: AVERAGE OF 2 CUPS OF COFFEE, 3 CUPS OF TEA IN EVENING - Recreational Drug Use Recreational Drug Use: No - Living Situation & Occupation Living situation: Reports: with Family Occupation: Employed ED ROS GENERAL - Review of Systems Review Of Systems: Comprehensive ROS is negative, except as noted in HPI. ED EXAM, SKIN/RASH Exam: See Below Exam Limited By: No Limitations General Appearance: Alert, WD/WN, Mild Distress Eye Exam: Bilateral Eye: EOMI, Normal Fundi, PERRL Ears: Normal External Exam, Normal Canal, Hearing Grossly Normal, Normal TMs Nose: Normal Inspection, Normal Mucosa, No Blood Throat/Mouth: Normal Inspection, Normal Lips, Normal Teeth, Normal Gums, Normal Oropharynx, Normal Voice, No Airway Compromise Head: Atraumatic, Normocephalic Neck: Normal Inspection, Supple, Non-Tender, Full Range of Motion Respiratory/Chest: No Respiratory Distress, Lungs Clear, Normal Breath Sounds, No Accessory Muscle Use, Chest Non-Tender Cardiovascular: Normal Peripheral Pulses, Regular Rate, Rhythm, No Edema, No Gallop, No JVD, No Murmur, No Rub GI/Abdominal: Normal Bowel Sounds, Soft, Non-Tender, No Organomegaly, No Distention, No Abnormal Bruit, No Mass (Female) Exam: Deferred Rectal (Female) Exam: Deferred Back Exam: Normal Inspection, Full Range of Motion, NT Extremities: Normal Inspection, Normal Range of Motion, Non-Tender, No Pedal Edema, Normal Capillary Refill Neurological: Alert, Oriented, CN II-XII Intact, Normal Cognition, Normal Gait, Normal Reflexes, No Motor/Sensory Deficits Psychiatric: Normal Affect, Normal Mood Skin: Wound/Incision (left great toe inflammation to the medial aspect) Location, Skin: Lower Extremity, Left Characteristics: Erythematous Associated features: Warmth, Tenderness, Swelling Lymphatic: No Adenopathy Course - Vital Signs Last Recorded V/S: Last Vital Signs Temp 98.3 F 12/09/20 10:44 Pulse 77 12/09/20 10:44 Resp 18 12/09/20 10:44 BP 108/77 12/09/20 10:44 Pulse Ox 99 12/09/20 10:44 - Orders/Labs/Meds Orders: Active Orders 24 hr Category Date Time Status Bacitracin [Bacitracin Oint 1 GM] Med 12/09/20 11:18 Once 1 dose TOP ONETIME ONE Departure - Departure Time of Disposition: 11:25 Disposition: Home, Self-Care 01 Condition: Fair Clinical Impression: Ingrown toenail of left foot with infection - Discharge Information *PRESCRIPTION DRUG MONITORING PROGRAM REVIEWED*: Not Applicable *COPY OF PRESCRIPTION DRUG MONITORING REPORT IN PATIENT SONNY: Not Applicable Care Plan Goals: The patient was advised of the examination results during the visit. The patient was discharged with a script for Clindamycin (300 mg) #30 to take 1 by mouth 3 times per day for 10 days. The patient was encouraged to soak her foot 2 times per day and keep the wound covered with a triple antibiotic ointment as well as a clean dressing. The patient was encouraged to follow-up with her primary care facility near the end of the oral antibiotic treatment (10 days). If the patient has any additional symptoms, the patient should either return to the emergency department or visit her primary care facility. Sepsis Event Note (ED) - Evaluation Sepsis Screening Result: No Definite Risk - Focused Exam Vital Signs: Vital Signs Temp Pulse Resp BP Pulse Ox 12/09/20 10:44 98.3 F 77 18 108/77 99 - My Orders Last 24 Hours: My Active Orders 12/09/20 11:18 Bacitracin [Bacitracin Oint 1 GM] 1 dose TOP ONETIME ONE - Assessment/Plan Last 24 Hours: My Active Orders 12/09/20 11:18 Bacitracin [Bacitracin Oint 1 GM] 1 dose TOP ONETIME ONE
== END 2020-12-09 11:35 | disposition home or self-care (01) ==
LOC: DL.ED 10:33
DX: L60.0 Ingrowing nail (principal); J45.909 Unspecified asthma, uncomplicated; E66.9 Obesity, unspecified; Z68.32 Body mass index [BMI] 32.0-32.9, adult; Z88.0 Allergy status to penicillin; Z91.040 Latex allergy status
CPT/HCPCS: 99283